=== PATIENT | female | born 1980 | race Caucasian/White ===

== ENCOUNTER 2016-08-04 11:10 | Emergency (ER) | payer MEDICAID ==
[2016-08-04] MEDS ORDERED: ASPIRIN 81 MG TAB.CHEW PO ONE (11:25)
[2016-08-04] MEDS ORDERED: ALBUTEROL SULFATE/IPRATROPIUM 3 ML NEBU IH ONE ×2 (11:26→11:44)
[2016-08-04 11:35] VITALS: BP 125/80
[2016-08-04 11:41] LABS: Hematocrit 38.1 % (37.0-47.0); Hemoglobin 12.4 gm/dL (12.5-16.0); Mean Cell Volume 78.1 fl (78-100); Mean Corpuscular Hemoglobin 25.4 pg (27-31); Mean Corpuscular Hgb Conc 32.5 g/dl (32-36); Mean Platelet Volume 10.3 fl (6.0-9.5); Neutrophil % 46.5 % (42-75.0); Platelet Count 223 K/mm3 (150-450); Red Blood Count 4.88 M/mm3 (4.2-5.4); White Blood Count 6.4 K/mm3 (4.0-10.5)
--- NOTE | 2016-08-04 11:43 | ERNOTE ---
Chest Pain/Cardiac HPI Date of Service: 08/04/16 Chief Complaint: Chest Pain Time Seen by Provider: 08/04/16 11:22 Source: patient Exam Limitations: no limitations Immunizations: IMMUNIZATION HX Immunizations Up to Date Yes History of Influenza Vaccine No Hx Pneumococcal Vaccination No Allergies/Adverse Reactions: Allergies Penicillins Allergy (Intermediate, Verified 11/21/13 14:32) Hives sulfamethoxazole [From Bactrim] Allergy (Intermediate, Verified 11/21/13 14:32) Itching trimethoprim [From Bactrim] Allergy (Intermediate, Verified 11/21/13 14:32) Itching lactose Adverse Reaction (Verified 11/21/13 14:32) Nausea Home Medications: HOME MEDICATIONS Albuterol Sulfate [Proair Hfa] 2 puff IH TID PRN #1 inhaler 08/04/16 [Last Taken Unknown] Doxycycline Hyclate [Vibratab] 100 mg PO BID 08/04/16 [Last Taken Unknown] Fluticasone Propionate [Flonase] 16 gm NS DAILY 08/04/16 [Last Taken Unknown] predniSONE [Prednisone] 1 tab PO DAILY #5 tab 08/04/16 [Last Taken Unknown] Narrative: Patient comes due to coughing, SOB, and R side chest pain that started a couple of days ago. Patient at the moment is not producing any phlegm. Patient had some chills. Timing: constant Severity/Quality: mild Location: other - R side of chest with no radiation Chest Pain Radiation: no radiation Activities at Onset: rest Modifying Factors - Improves: Present: nothing Modifying Factors - Worsens: Present: breathing, coughing, position, movement Nitro Today/Relief: no nitro taken today Aspirin Treatment Today: no aspirin today Associated Symptoms: Present: cough, shortness of breath, fever/chills, weakness. Absent: headache, dizziness, syncope, diaphoresis, palpitations, heartburn, nausea, vomiting, abdominal pain, back pain, swelling/lump in chest Prior Chest Pain/Cardiac Workup: Denies: prior chest pain Prior Treatment: Denies: recently seen Review of Systems - Review of Systems Constitutional: Present: chills, weakness, malaise EYE: Present: no symptoms reported ENT: Present: no symptoms reported Respiratory: Present: cough - no sputum secretions Cardiology: Present: chest pain - R side of chest Gastrointestinal/Abdominal: Absent: nausea, vomiting, diarrhea, constipation, abdominal pain Genitourinary: Present: no symptoms reported Musculoskeletal: Present: muscle pain Skin: Present: no symptoms reported Neurological: Present: no symptoms reported Endocrine: Present: no symptoms reported Hematologic/Lymphatic: Absent: easy bruising, easy bleeding - Patient's Past Medical History Patient History - Medical: Anxiety, GERD, Obesity, UTI'S Patient History - Cancer: No Hx of Cancer Patient History - Surgical Procedures: Appendectomy, , D & C, T & A, Other LMP (females 10-50): 2 months - Social History Living Situations: spouse Smoking Status: Current every day smoker Have you smoked in the past 12 months: Yes Do you dip or chew tobacco: No Patient requests Smoking Cessation Consult: No Initiate information on Smoking Cessation: No Physical Exam - Physical Exam General Appearance: Present: wd/wn, alert, no apparent distress Eye Exam: Normal inspection: bilateral Ears, Nose, Throat: Present: normal ENT inspection, hearing grossly normal, normal pharynx. Absent: dry mucous membranes Neck: Present: normal inspection, nontender. Absent: carotid bruit Respiratory: Present: no respiratory distress, no accessory muscle use, chest tenderness - On palpation, expiration (prolonged), rhonchi - RML area Cardiovascular/Chest: Present: regular rate, rhythm, normal peripheral pulses. Absent: systolic murmur, diastolic murmur, friction rub, JVD Peripheral Pulses: N=norm/S=strong/W=weak/B=bound/A=absent: Carotid (R): Normal , Carotid (L): Normal, Radial (R): Normal, Radial (L): Normal, Dorsalis-pedis (R ): Normal, Dorsalis-pedis (L): Normal Gastrointestinal/Abdominal: Present: normal bowel sounds, nontender, nondistended, soft, no organomegaly. Absent: guarding, rebound Back Exam: Present: no CVA tenderness Extremity Exam: Present: normal inspection, non-tender, no edema, normal range of motion Neurological Exam: Present: alert, oriented, normal mood/affect, no motor/ sensory deficits Skin Exam: Present: normal color, warm/dry Lymphatic Exam: Present: no adenopathy ED Progress - Date and Time Seen: Date and Time: 08/04/16 12:30 Patient with negative Trop, no ST Elevations, BRADY Score: 0, and Low Probability for PE due to a low Well's Score. Patient will be discharge home with Tx for Bronchitis. Patient with no pneumonia reported on x-ray. - Results and Orders Patient's Lab Results:: I have reviewed the patient's lab results. Results and Orders: Patient with negative Trop, normal WBC, and no renal impairment - Vital Signs Patient's Vital Signs:: I have reviewed the patient's vital signs. Vital Signs: Vital Signs 08/04/16 11:19 Temperature 36.5 C Pulse Rate 75 Respiratory 20 Rate Blood Pressure 143/90 O2 Sat by Pulse 96 Oximetry - EKG EKG: NSR EKG read: Interp. by me EKG Comments: HR: 80, [place]: Normal, No ST Elevations, Normal QT/QTc - X-Ray X-Ray #1 X-Ray: chest X-ray Comments: Radiology Report noticed: Normal - Progress/Reassessment Chief Complaint: Chest Pain Progress:: Re-examined - Transfer of Care Expected Disposition: Discharge Departure - Departure Clinical Impression: Bronchitis Chest pain Qualifiers: Chest pain type: unspecified Qualified Code(s): R07.9 - Chest pain, unspecified Disposition: Home self-care Condition: Stable Instructions: Chest Wall Pain, [id number], Acute Bronchitis Prescriptions: Albuterol Sulfate [Proair Hfa] 2 puff IH TID PRN #1 inhaler PRN Reason: Shortness Of Breath predniSONE [Prednisone] 1 tab PO DAILY #5 tab
[2016-08-04] MEDS ORDERED: ASPIRIN 81 MG TAB.CHEW ONE (11:44)
[2016-08-04 12:12] LABS: ALT 27 U/L (19-67); AST 19 U/L (0-48); Albumin * 3.5 gm/dl (3.4-5.0); Alkaline Phosphatase * 75 U/L (50-170); Bilirubin, Total 0.2 mg/dL (0.0-1.1); Blood Urea Nitrogen 5 mg/dL (3-23); Ca. Corrected For Albumin 8.6 mg/dL (8.4-10.2); Calcium * 8.5 mg/dL (7.9-10.9); Carbon Dioxide 24.6 mmol/L (24-32.6); Chloride 107 mmol/L (97-106); Glucose * 79 mg/dL (70-110); Potassium 3.6 mmol/L (3.4-4.6); Sodium 142 mmol/L (132-142); Total Protein 6.8 gm/dL (6.2-8.2); Troponin I Less than 0.017 ng/ml (0.00-0.10)
[2016-08-04 12:19] LABS: INR 0.96 INR (0.90-1.10); Partial Thrombolplastin Time 26.8 Seconds (24-32)
== END 2016-08-04 13:16 | disposition home or self-care (01) ==
LOC: ER 11:10
DX: J40 Bronchitis, not specified as acute or chronic (principal); R07.9 Chest pain, unspecified; F17.210 Nicotine dependence, cigarettes, uncomplicated